=== PATIENT | male | born 1955 | race Caucasian/White ===

== ENCOUNTER 2020-10-03 16:04 | Observation (INO) | payer MEDICARE, SELFPAY ==
[2020-10-03] VITALS (44 sets, daily range): BP systolic 93–113; BP diastolic 53–93; PULSE 79–167; RESP 13–26; TEMP 36.4–37.1; O2SAT 90–100; BMI 33.5
--- NOTE | ~2020-10-03 | XR_ITS ---
EXAMINATION: XR chest 1V portable INDICATION: Dizziness, bradycardia TECHNIQUE: Portable AP chest at 1630 hours COMPARISON: None available FINDINGS: The lungs are free of acute opacities. There is no pleural effusion or pneumothorax. The ca rdiomediastinal silhouette is normal. 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 IMPRESSION: 1. No acute cardiopulmonary abnormality. Reviewed, dictated and finalized at location A.
--- NOTE | 2020-10-03 16:20 | ECG_ITS ---
Measurements Intervals [place] Rate: 84 P: [place]: 0 QRS: 29 QRSD: 135 T: 84 QT: 406 QTc: 482 Interpretive Statements ATRIAL FIBRILLATION LEFT BUNDLE BRANCH BLOCK BASELINE ARTIFACT- II, III ABNORMAL ECG Electronically Signed On 10-03-2020 17:36:06 CDT by Alberto Dominguez D.O.
--- NOTE | 2020-10-03 16:30 | ED.GENADULT ---
HPI - General Adult General Chief complaint: Unspecified Stated complaint: DIZZY,LIGHTHEADED LOW HR Time Seen by Provider: 10/03/20 16:24 Source: RN notes reviewed History of Present Illness HPI narrative: Patient reversed presents to emergency department from home via EMS for dizziness. Patient states he was outside for 3 hours telling some hard ground when he began to feel dizzy and weak he states he noted seeing spots in his eyes that time called EMS states did not drink anything during that time but was trying to drink after he was done when EMS arrived the patient was noted to be significantly bradycardic in the low 30s he was given 0.5 mg of atropine at that time. Patient is not currently in atrial fibrillation he denies a history of atrial fibrillation but states he has been worked up for an irregular heart rate before in the past states he has been having episodes over the past month where he feels like his heart is racing at time he denies any fevers or chills, chest pain shortness of breath abdominal pain states he was having nausea and vomiting prior to EMS arrival Related Data Home Medications Medication Instructions Recorded Confirmed glipizide 10 mg PO DAILY 10/03/20 10/03/20 lisinopril 10 mg PO DAILY 10/03/20 10/03/20 metformin 500 mg PO DAILY 10/03/20 10/03/20 pitavastatin calcium [Livalo] 1 mg PO DAILY 10/03/20 10/03/20 Allergies Allergy/AdvReac Type Severity Reaction Status Date / Time No Known Allergies Allergy Verified 10/03/20 16:13 Review of Systems Review of Systems: Gen.: Denies fevers or chills Eyes: Denies eye pain or visual change ENT: Denies congestion Respiratory: Denies shortness of breath or cough CV: See HPI GI: Denies abdominal pain or diarrhea. Reports nausea vomiting denies burning, urgency, frequency or hematuria Musculoskeletal: Denies back pain or muscle pain Neuro: Reports weakness Skin: Denies rash Except as documented, all other systems reviewed and negative [facility] Past Medical History Medical History (Updated 10/03/20 @ 22:08 by Lucas Plata DO) Diabetes mellitus Hypertension Family History Family History (Updated 10/03/20 @ 21:37 by Emma Parnell RN) Mother Alzheimer disease Seizure Father Skin cancer Diabetes mellitus Hx of CABG Social History Social History (Updated 10/03/20 @ 16:32 by Lucas Plata DO) Smoking status: Never smoker Alcohol intake: current Substance use: never Substance use type: does not use Gender identity (if verbalized by the patient): Male Spiritual care concerns: No Exam Narrative: APPEARANCE: No acute distress, nontoxic, resting in bed EYES: EOMI HEENT: Normocephalic, atraumatic, OMM RESPIRATORY: No respiratory distress Clear to auscultation bilaterally with no rhonchi wheezing or rales. CARDIOVASCULAR: Irregular irregular and tachycardic without murmurs rubs or gallops. ABDOMINAL: Soft, nontender, nondistended, no rebound or guarding MUSCULOSKELETAl: Moves all extremities. No clubbing, cyanosis or edema. NEURO: Awake and alert. Following commands, speech normal, no focal deficits SKIN:: Warm, dry. No rashes lesions or abrasions PSYCHIATRIC: Normal affect/mood, Course Course Emergency Course: Reviewed rhythm strips from EMS patient with sinus bradycardia in the low 30s prior to atropine 1645 called and discussed with Dr. Dominguez per cardiology. Discussed the patient's bradycardia and atropine given and now A. fib with RVR. Recommends patient being loaded with amiodarone for his atrial fibrillation with RVR. Recommends no anticoagulation at this time Called and updated Dr. Dominguez on lab results patient's current heart rate. Agrees with current treatment plan of amiodarone will follow as inpatient Discussed Dr. Avendaño presentation work-up agrees with admission at this time Discussed with patient and family results of workup and diagnosis. Discussed need for admission. Patient and family underst
--- NOTE | 2020-10-03 16:35 | ECG_ITS ---
Measurements Intervals [place] Rate: 157 P: [place]: 0 QRS: 15 QRSD: 130 T: 154 QT: 296 QTc: 480 Interpretive Statements ATRIAL FIBRILLATION WITH RAPID VENTRICULAR RESPONSE LEFT BUNDLE BRANCH BLOCK BASELINE ARTIFACT- II, III, AVF, V4-V6 ABNORMAL ECG Electronically Signed On 10-03-2020 17:37:28 CDT by Alberto Dominguez D.O.
--- NOTE | 2020-10-03 16:56 | PC.NURSE ---
Called Demario in lab to add on CMP CK, PT INR PTT, CBCD, BNP
[2020-10-03] MEDS: AMIODARONE 150 MG/D5W 100 ML 150 MG/100 ML BAG 600 MG IV CONT (17:16)
[2020-10-03] MEDS: SODIUM CHLORIDE 0.9% IV 1,000 ML 33.33 ML (17:16)
[2020-10-03] MEDS: SODIUM CHLORIDE 0.9% IV 1,000 ML 999 ML IV CONT ×2 (17:17→18:09)
[2020-10-03] MEDS: AMIODARONE 360 MG/D5W 200 ML 360 MG/200 ML BAG 33.33 MG IV CONT (17:39)
[2020-10-03 18:08] LABS: Basophils Percent Auto 0.2 % (0.2-1.2); Eosinophils Percent Auto 0.1 % (0-4.4); Hematocrit 43.5 % (42.0-52.0); Hemoglobin 13.9 g/dL (14.0-18.0); Immature Granulocyte Absolute 0.05 K/mm3 (0.00-0.031); Immature Granulocyte Percent A 0.4 % (0-0.5); Lymphocytes Percent Auto 7.4 % (18.3-44.2); Mean Corpuscular Hemoglobin 29.2 pg (26-34); Mean Corpuscular Volume 91.4 fl (80-100); Mean Platelet Volume 11.1 fl (7.4-10.4); Monocytes Percent Auto 7.2 % (2.6-8.5); Neutrophils Absolute Auto 11.4 K/mm3 (1.3-6.7); Neutrophils Percent Auto 84.7 % (45.5-73.1); Platelet Count Result 203 k/mm3 (150-375); Red Blood Count 4.76 M/mm3 (4.6-6.20); Red Cell Distribution Width 13.6 % (11.5-14.5); White Blood Count 13.5 K/mm3 (4.5-10.0)
[2020-10-03 18:18] LABS: INR 1.1; Prothrombin Time 13.7 Seconds (11.1-14.7)
[2020-10-03 18:19] LABS: Partial Thromboplastin Time 23.9 SECONDS (22.3-36.8)
[2020-10-03 18:33] LABS: Alanine Aminotransferase 38 U/L (4-50); Albumin Level 4.1 g/dL (3.5-5.1); Alkaline Phosphatase 57 U/L (38-126); Anion Gap 13 mmol/L (8-16); Aspartate Amino Transferase 36 U/L (17-59); Bilirubin,Total 1.5 mg/dL (0.2-1.3); Blood Urea Nitrogen 21 mg/dL (9-20); Calcium 9.3 mg/dL (8.4-10.2); Carbon Dioxide 23 mmol/L (22-30); Chloride 105 mmol/L (98-107); Creatine Kinase 127 U/L (55-170); Estimated CRCL calculation 50 ml/min; Estimated Glomerular Filt Rate 41; Glucose 221 mg/dL (65-110); Magnesium 1.8 mg/dL (1.6-2.3); Potassium 4.6 mmol/L (3.4-5.0); Sodium 141 mmol/L (137-145)
[2020-10-03 18:47] LABS: Troponin I 0.091 ng/mL (0.000-0.034)
--- NOTE | 2020-10-03 19:29 | PM.CNCAR ---
Assessment and Plan Assessment and plan (1) Hypertension: Code(s): I10 - Essential (primary) hypertension Status: Acute Assessment and Plan: Low normal currently and improving with IV fluid rehydration. Hold off on Lisinopril. (2) Dyslipidemia: Code(s): E78.5 - Hyperlipidemia, unspecified Status: Acute Assessment and Plan: On Livalo. (3) Atrial fibrillation: Code(s): I48.91 - Unspecified atrial fibrillation Status: Acute Assessment and Plan: Probably pushed him over with Atropine. [id number] 3. Will given him Lovenox dose while he is in hospital. Started Amiodarone drip to attempt chemical cardioversion. Will add low dose Metoprolol to improve his HR as his BP allows. Obtain echo. Check TSH. (4) Junctional rhythm: Code(s): I49.8 - Other specified cardiac arrhythmias Status: Acute (5) Diabetes mellitus: Code(s): E11.9 - Type 2 diabetes mellitus without complications Status: Acute Assessment and Plan: Management as per hospitalist. (6) LBBB (left bundle branch block): Code(s): I44.7 - Left bundle-branch block, unspecified Status: Acute History of Present Illness History of Present Illness Consult date/time: 10/03/20 19:30 Reason for consult: Atrial fibrillation. 64 yr old man presents to ED via EMS for dizziness. He has a history of DM, hypertension, dyslipidemia. Reports that he worked around his house in the heat for 3 hours and was not drinking enough water. He went to lie down and it did not get better, feeling weak, dizzy, nauseated and vomited. He called EMS and they found him to be in junctional rhythm at HR 30's bpm and low BP. He was given Atropine 0.5 mg IV x1, which then caused him to go into atrial fibrillation with RVR. He received IV fluids. Amiodarone drip has been started and his HR is in 110-130 bpm range. Denies any more dizzness, BP is low normal at 102/68 mmHg. No longer feeling dizziness, nauseated. Normally he is able to walk 2 miles without any problems. Admits to some palpitations off and on. Denies snoring, waking up or daytime sleepiness. Denies chest pain, sob, orthopnea, PND, edema. Troponin .091. EKG Atrial fibrillation with RVR, LBBB. CXR is normal. Cr 1.7/GFR 50. Mag 1.8. Reason For Visit: DIZZY,LIGHTHEADED LOW HR Review of Systems Constitutional: Constitutional: Reports as per HPI, Denies chills, Denies daytime sleepiness, Reports fatigue, Denies fever(s) and Denies snoring Cardiovascular: Cardiovascular: Reports as per HPI, Denies chest pain, Reports irregular heart rhythm, Reports lightheadedness and Denies dyspnea on exertion Respiratory: Respiratory: Reports as per HPI and Denies dyspnea Gastrointestinal: Gastrointestinal: Reports as per HPI, Denies abdominal pain, Reports nausea and Reports vomiting Genitourinary: Genitourinary: Reports as per HPI and Denies dysuria Musculoskeletal: Musculoskeletal: Reports as per HPI Neurologic: Reports as per HPI, Reports dizziness and Denies syncope [facility] Past Medical History Medical History (Updated 10/03/20 @ 19:40 by Alberto Dominguez DO) Diabetes mellitus Hypertension Social History Social History (Updated 10/03/20 @ 16:32 by Lucas Plata DO) Smoking status: Never smoker Meds Home Medications and Allergies Home Medications Medication Instructions Recorded Confirmed Type glipizide 10 mg PO DAILY 10/03/20 10/03/20 History lisinopril 10 mg PO DAILY 10/03/20 10/03/20 History metformin 500 mg PO DAILY 10/03/20 10/03/20 History pitavastatin calcium [Livalo] 1 mg PO DAILY 10/03/20 History Allergies Allergy/AdvReac Type Severity Reaction Status Date / Time No Known Allergies Allergy Verified 10/03/20 16:13 Vital Signs Vital Signs - 24 hr 10/03/20 16:06 10/03/20 16:09 10/03/20 16:15 Temperature 97.5 F L Pulse Rate 91 79 96 Respiratory Rate 18 14 19 Blood Pressure 96/59 L Pulse Oximetry 98 100
--- NOTE | 2020-10-03 21:27 | ADMGEN ---
This patient, Judson Bazan, was admitted to IMU Room 202-01 at 2125. Patient/family oriented to hospital policies and general routines including ID bracelet, bed and alarms, visiting hours, pain management, procedures, bathroom and other care routines, personal items, smoking policy, room service/diet, and visiting hours. Information on how to activate the Rapid Response Team has been discussed. Patient/Family are encouraged to report perceived risks to care and to ask questions if they do not understand what they are told or what they should do.
[2020-10-03 21:42] LABS: Troponin I 0.117 ng/mL (0.000-0.034)
[2020-10-03 22:43] LABS: Troponin I 0.121 ng/mL (0.000-0.034)
[2020-10-03] MEDS: AMIODARONE 360 MG/D5W 200 ML 360 MG/200 ML BAG 16.67 MG IV CONT (23:06)
[2020-10-03] MEDS: ENOXAPARIN 120 MG/0.8 ML SYRINGE 110 MG SUB-Q (23:27)
[2020-10-03] MEDS: METOPROLOL TARTRATE 12.5 MG TABLET PO (23:28)
[2020-10-03] MEDS: SODIUM CHLORIDE 0.9% IV 1,000 ML 100 ML IV CONT (23:31)
[2020-10-04] VITALS (17 sets, daily range): BP systolic 81–98; BP diastolic 51–76; PULSE 59–156; RESP 12–18; TEMP 36.6–37; O2SAT 92–100
--- NOTE | 2020-10-04 | ECHO_ITS ---
Patient Info Name: Judson Bazan Age: 64 years : 1955 Gender: Male Ht: 72 in Wt: 247 lbs BSA: 2.42 m2 BP: 86 / 68 mmHg Technical Quality: Poor Exam Date: 10/04/2020 8:43 AM Exam Location: [facility] Patient Status: Inpatient Admit Date: 10/03/2020 Staff Ordering Physician: Alberto Dominguez DO Excavating Machine Operator: Yamileth Mir RDCS Attending Provider: Jose D Duncan MD Referring Physician: Alberto GAY; Exam Type: CA echo dop color flow w con Study Info Indications I48.0 - Paroxysmal atrial fibrillation Complete two-dimentional, color flow and Doppler transthoracic echocardiogram is performed with agitated saline and with contrast to opacify the left ventricle and to improve the delineation of the left ventricle endocardial borders. Contrast/Agitated Saline Contrast/Ag. Saline: Definity Amount: 1.00 ml Administered By: Tamanna Koehler RN Existing IV Access: Yes IV Access Condition: patent with no signs of infiltration Reason for Poor Study: patient body habitus Summary 1. Left ventricular chamber dimension is normal. 2. Definity contrast administered did not improve wall motion interpretation. 3. Left ventricular systolic function is normal, estimated at 55-60%. 4. There is mildly increased left ventricular wall thickness. 5. Left ventricular septal wall motion is abnormal with septal motion related to bundle branch block. 6. The left ventricular diastolic function is normal. 7. E/e' 7 is not elevated. 8. Atrial fibrillation. 9. Right ventricular systolic function is reduced based on a mildly abnormal TAPSE 1.6 cm. 10. Left atrial chamber dimension is mildly enlarged. 11. There is trace tricuspid valve regurgitation. 12. No pulmonary hypertension, estimated pulmonary arterial systolic pressure is 27 mmHg. Left Ventricle Definity contrast administered did not improve wall motion interpretation. Atrial fibrillation. E/e' 7 is not elevated. Left ventricular chamber dimension is normal. Left ventricular systolic function is normal, estimated at 55-60%. There is mildly increased left ventricular wall thickness. Left ventricular septal wall motion is abnormal with septal motion related to bundle branch block. The left ventricular diastolic function is normal. Right Ventricle Right ventricular systolic function is reduced based on a mildly abnormal TAPSE 1.6 cm. Right ventricular chamber dimension is not well visualized. Left Atria Left atrial chamber dimension is mildly enlarged. Right Atria Right atrial chamber dimension is normal. Aortic Valve The aortic valve is trileaflet. There is no aortic valve stenosis. There is no aortic valve regurgitation. Pulmonic Valve There is no pulmonic regurgitation. Mitral Valve There is no mitral valve stenosis. There is no mitral valve regurgitation. Tricuspid Valve There is trace tricuspid valve regurgitation. No pulmonary hypertension, estimated pulmonary arterial systolic pressure is 27 mmHg. Pericardium/Pleural There is no pericardial effusion. Inferior Vena Cava Normal inferior vena cava with >50% collapse upon inspiration consistent with normal right atrial pressure, 5 mmHg. Aorta The aortic root size at the sinus of Valsalva is normal. Left Ventricular Outflow Tract Name Value Normal
[2020-10-04 00:26] LABS: Glucose Point of Care 203 mg/dl (65-105)
--- NOTE | 2020-10-04 01:42 | PM.IMHP ---
H&P: HPI History of Present Illness Date/Time: 10/04/20 01:42 Chief Complaint: DIZZINESS Narrative: THIS IS A 64-YEAR-OLD MALE WITH PAST MEDICAL HISTORY SIGNIFICANT HYPERTENSION, TYPE 2 DIABETES MELLITUS ON ORAL AGENTS AND DIET CONTROLLED, DYSLIPIDEMIA. PATIENT PRESENTED TODAY TO THE EMERGENCY ROOM AFTER HE WAS DOING YD WORK WHEN HE FELT VERY DIZZY WHEN BACK INSIDE HIS HOUSE HE WENT OF 3 FLIGHTS OF STAIRS AND ON HIS WAY DOWN HE FELT VERY LIGHTHEADED DIZZY HE DENIED ANY CHEST PAIN HE HAD PROFUSE DIAPHORESIS. PATIENT STATES THAT HE HAD 1 OTHER EPISODES SIMILAR TO THAT ABOUT COUPLE OF MONTHS AGO. PATIENT DENIED ANY CHANGE OF VISION NO SHORTNESS OF BREATH NO NAUSEA NO VOMITING NO ABDOMINAL PAIN NO LEG SWELLING NO PND NO ORTHOPNEA NO FEVERS NO RIGORS NO CHILLS NO COUGH. HE HAS BEEN HIS USUAL STATE OF HEALTH UP UNTIL THESE. PATIENT CALLED EMS AND UPON EMS ARRIVAL HE WAS FOUND TO HAVE A HEART RATE INTO THE 30S HOWEVER UPON ARRIVAL TO EMERGENCY ROOM HIS HEART RATE WAS IN THE 160'S AND HE WAS FOUND TO HAVE AFIB WITH RAPID VENTRICULAR RESPONSE. PRELIMINARY WORKUP WAS SIGNIFICANT FOR A SLIGHT ELEVATION OF TROPONIN AND CREATININE. A CHEST X-RAY DID NOT SHOW ANY ACUTE CARDIOPULMONARY ABNORMALITY. PATIENT WAS STARTED ON CARDIZEM DRIP IN THE EMERGENCY ROOM. Review of Systems Review of Systems: DIZZINESS Constitutional: Constitutional: Denies chills, Denies daytime sleepiness, Denies difficulty sleeping, Denies fatigue, Denies fever(s), Denies lethargy, Denies night sweats and Denies weakness Eyes: Eyes: Denies change in vision ENT: Denies dysphagia, Reports dizziness, Denies odynophagia and Denies disequilibrium Cardiovascular: Cardiovascular: Denies chest pain, Denies chest pain at rest, Reports diaphoresis, Denies syncope, Denies leg edema, Reports lightheadedness, Denies radiating jaw, neck or arm pain, Denies palpitations, Denies dyspnea, Denies dyspnea on exertion and Denies orthopnea Respiratory: Respiratory: Denies cough and Denies wheezing Gastrointestinal: Gastrointestinal: Denies dyspepsia, Denies heartburn, Denies nausea and Denies vomiting Genitourinary: Genitourinary: Reports no additional male genitourinary complaints Musculoskeletal: Musculoskeletal: Reports no additional musculoskeletal complaints Integumentary/Breasts: Skin/Breast: Reports system reviewed and no additional complaints, except as docu Neurologic: Reports system reviewed and no additional complaints, except as documented, Denies focal weakness and Denies Sensory deficit (Neuro) Psychiatric: Psychiatric: Reports no additional psychiatric complaints PMFSH Past Medical History Medical History (Updated 10/03/20 @ 22:08 by Lucas Plata DO) Diabetes mellitus Hypertension Family History Family History (Updated 10/03/20 @ 21:37 by Emma Parnell RN) Mother Alzheimer disease Seizure Father Skin cancer Diabetes mellitus Hx of CABG Social History Social History (Updated 10/03/20 @ 16:32 by Lucas Plata DO) Smoking status: Never smoker Alcohol intake: current Substance use: never Substance use type: does not use Gender identity (if verbalized by the patient): Male Spiritual care concerns: No Meds Home Medications and Allergies Home Medications Medication Instructions Recorded Confirmed Type glipizide 10 mg PO DAILY 10/03/20 10/03/20 History lisinopril 10 mg PO DAILY 10/03/20 10/03/20 History metformin 500 mg PO DAILY 10/03/20 10/03/20 History pitavastatin calcium [Livalo] 1 mg PO DAILY 10/03/20 10/03/20 History Allergies Allergy/AdvReac Type Severity Reaction Status Date / Time No Known Allergies Allergy Verified 10/03/20 16:13 Vital Signs Vital Signs - 24 hr 10/03/20 16:06 10/03/20 16:09 10/03/20 16:15 Temperature 97.5 F L Pulse Rate 91 79 96 Respiratory Rate 18 14 19 Blood Pressure 96/59 L Pulse Oximetry 98 100 100 10/03/20 16:17 10/03/20 16:30 10/03/20 16:41 Temperature Pu
[2020-10-04 05:21] LABS: Basophils Percent Auto 0.3 % (0.2-1.2); Eosinophils Percent Auto 0.3 % (0-4.4); Hematocrit 37.3 % (42.0-52.0); Hemoglobin 12.2 g/dL (14.0-18.0); Immature Granulocyte Absolute 0.04 K/mm3 (0.00-0.031); Immature Granulocyte Percent A 0.3 % (0-0.5); Lymphocytes Absolute Auto 2.31 K/mm3 (0.9-3.2); Lymphocytes Percent Auto 19.7 % (18.3-44.2); Mean Corpuscular HGB Conc 32.7 g/dl (32-36); Mean Corpuscular Hemoglobin 29.2 pg (26-34); Mean Corpuscular Volume 89.2 fl (80-100); Mean Platelet Volume 11.7 fl (7.4-10.4); Monocytes Absolute Auto 1.2 K/mm3 (0.1-0.6); Monocytes Percent Auto 9.8 % (2.6-8.5); Neutrophils Absolute Auto 8.2 K/mm3 (1.3-6.7); Neutrophils Percent Auto 69.6 % (45.5-73.1); Platelet Count Result 209 k/mm3 (150-375); Red Blood Count 4.18 M/mm3 (4.6-6.20); Red Cell Distribution Width 13.8 % (11.5-14.5); White Blood Count 11.7 K/mm3 (4.5-10.0)
[2020-10-04 05:50] LABS: Alanine Aminotransferase 27 U/L (4-50); Albumin Level 3.2 g/dL (3.5-5.1); Alkaline Phosphatase 48 U/L (38-126); Anion Gap 9 mmol/L (8-16); Aspartate Amino Transferase 25 U/L (17-59); Blood Urea Nitrogen 23 mg/dL (9-20); Calcium 8.7 mg/dL (8.4-10.2); Carbon Dioxide 22 mmol/L (22-30); Chloride 107 mmol/L (98-107); Estimated CRCL calculation 83 ml/min; Estimated Glomerular Filt Rate > 60; Glucose 126 mg/dL (65-110); Sodium 138 mmol/L (137-145)
[2020-10-04] MEDS: METOPROLOL TARTRATE 12.5 MG TABLET PO (06:28)
--- NOTE | 2020-10-04 07:30 | PM.PNCARD ---
Progress Note: A&P Assessment and Plan (1) Hypertension: Code(s): I10 - Essential (primary) hypertension Status: Acute Assessment and Plan: Relative hypotension. Probably related to dehydration and in atrial fib. Hold off on Lisinopril. Continue with IV fluids. (2) Dyslipidemia: Code(s): E78.5 - Hyperlipidemia, unspecified Status: Acute Assessment and Plan: On Livalo. (3) Atrial fibrillation: Code(s): I48.91 - Unspecified atrial fibrillation Status: Acute Assessment and Plan: Probably pushed him over with Atropine. [id number] 3. Will given him Lovenox dose while he is in hospital. Started Amiodarone drip to attempt chemical cardioversion. Will add low dose Metoprolol to improve his HR as his BP allows. If BP remains low will add Digoxin 125 mcg PO BID for rate control. Obtain echo this morning. Check TSH. If still in atrial fib after 24 hours of Amiodarone drip, then plan for DC cardioversion in AM with anesthesia. (4) Junctional rhythm: Code(s): I49.8 - Other specified cardiac arrhythmias Status: Acute Assessment and Plan: Probably due to vasovagal from dehydration/heat exhaustion. (5) Diabetes mellitus: Code(s): E11.9 - Type 2 diabetes mellitus without complications Status: Acute Assessment and Plan: Management as per hospitalist. (6) LBBB (left bundle branch block): Code(s): I44.7 - Left bundle-branch block, unspecified Status: Acute Subjective Date/time seen: 10/04/20 07:30 Patient feels fine this morning, walking around in his room going to restroom. No chest pain or sob or dizziness. Exam Const: General: cooperative, healthy appearing and comfortable Nutritional Appearance: obese Resp: Auscultation: clear to auscultation bilaterally, no crackles, no rales, no rhonchi and no wheezes Cardio: Jugular venous distension: no JVD Rate: tachycardic Rhythm: abnormal rhythm Heart sounds: no murmurs Peripheral pulses: dorsalis pedis present GI: GI Palp: No abdominal tenderness and Yes Soft to palpation Neuro: General: oriented to person, oriented to place and oriented to time Extrem: Right lower extremity: no edema Left lower extremity: no edema Objective Data Vital Signs Vital Signs: Vital Signs - 24 hr 10/03/20 16:06 10/03/20 16:09 10/03/20 16:15 Temperature 97.5 F L Pulse Rate 91 79 96 Respiratory Rate 18 14 19 Blood Pressure 96/59 L Pulse Oximetry 98 100 100 10/03/20 16:17 10/03/20 16:30 10/03/20 16:41 Temperature Pulse Rate 89 151 H 163 H Respiratory Rate 16 22 H 16 Blood Pressure 100/56 L 93/63 L Pulse Oximetry 100 99 100 10/03/20 16:45 10/03/20 16:46 10/03/20 17:00 Temperature Pulse Rate 149 H 167 H 159 H Respiratory Rate 19 18 25 H Blood Pressure 97/69 L 109/80 Pulse Oximetry 98 100 100 10/03/20 17:18 10/03/20 17:30 10/03/20 17:31 Temperature Pulse Rate 142 H 137 H 140 H Respiratory Rate 15 16 17 Blood Pressure 107/53 L Pulse Oximetry 100 100 100 10/03/20 17:45 10/03/20 17:47 10/03/20 18:00 Temperature Pulse Rate 142 H 136 H 131 H Respiratory Rate 25 H 20 18 Blood Pressure 105/63 Pulse Oximetry 99 100 99 10/03/20 18:01 10/03/20 18:02 10/03/20 18:15 Temperature Pulse Rate 134 H 151 H 149 H Respiratory Rate 13 14 19 Blood Pressure 109/80 Pulse Oximetry 99 100 95 10/03/20 18:16 10/03/20 18:30 10/03/20 18:31 Temperature Pulse Rate 131 H 131 H 135 H Respiratory Rate 15 24 H 20 Blood Pressure 103/79 106/93 H Pulse Oximetry 90 99 100 10/03/20 18:45 10/03/20 18:46 10/03/20 19:00 Temperature Pulse Rate 133 H 121 H 129 H Respiratory Rate 17 22 H 22 H Blood Pressure 103/79 Pulse Oximetry 97 100 100 10/03/20 19:01 10/03/20 19:15 10/03/20 19:18 Temperature Pulse Rate 135 H 133 H 131 H Respiratory Rate 22 H 14 17 Blood Pressure 107/74 102/68 Pulse Oximetry 98 100 100 10/03/20 19:30
--- NOTE | 2020-10-04 08:00 | ECG_ITS ---
Measurements Intervals [place] Rate: 122 P: [place]: 0 QRS: 38 QRSD: 137 T: 180 QT: 328 QTc: 468 Interpretive Statements ATRIAL FIBRILLATION WITH RAPID VENTRICULAR RESPONSE LEFT BUNDLE BRANCH BLOCK ABNORMAL ECG Electronically Signed On 10-04-2020 9:39:43 CDT by Alberto Dominguez D.O.
[2020-10-04 08:03] LABS: Glucose Point of Care 203 mg/dl (65-105)
[2020-10-04] MEDS: PERFLUTREN LIPID MICROSPHERES 1.5 ML VIAL DILUTED TO 10 ML TOTAL VOLUME IV PUSH (09:13)
[2020-10-04] MEDS: ENOXAPARIN 120 MG/0.8 ML SYRINGE 110 MG SUB-Q ×2 (09:39→20:23)
[2020-10-04] MEDS: SODIUM CHLORIDE 0.9% IV 1,000 ML 100 ML IV CONT ×2 (09:43→19:51)
[2020-10-04 10:55] LABS: Add Urine Microscopic? NO; Appearance Urine Clear (Clear); Bilirubin Urine Negative (Negative); Blood Urine Negative (Negative); Color Urine Yellow (Yellow); Glucose Urine UA Negative (Negative); Ketones Urine Negative (Negative); Leukocyte Esterase Ur Negative LEU/UL (Negative); Nitrate Urine Negative (Negative); Protein Urine Negative (Negative); Specific Grav Ur 1.027 (1.001-1.035); Urobilinogen Urine Negative mg/dL (<2.0)
[2020-10-04] MEDS: AMIODARONE 360 MG/D5W 200 ML 360 MG/200 ML BAG 16.67 MG IV CONT (11:30)
[2020-10-04 11:46] LABS: Glucose Point of Care 176 mg/dl (65-105)
--- NOTE | 2020-10-04 12:16 | PHAR ---
Home med verified: Livalo 1mg take 1 tablet PO daily
[2020-10-04] MEDS: DIGOXIN TAB 125 MCG TABLET PO (14:40)
[2020-10-04 16:26] LABS: Glucose Point of Care 194 mg/dl (65-105)
--- NOTE | 2020-10-04 16:58 | PM.IMPN ---
Progress Note: A&P Assessment and Plan (1) Atrial fibrillation with rapid ventricular response: Code(s): I48.91 - Unspecified atrial fibrillation Status: Acute Assessment and Plan: Cardiology consult to recommendations appreciated Patient based on amiodarone drip for conversion Anticoagulation (2) Acute renal insufficiency: Code(s): N28.9 - Disorder of kidney and ureter, unspecified Status: Acute Assessment and Plan: HU secondary to dehydration IVFs (3) Elevated troponin: Code(s): R77.8 - Other specified abnormalities of plasma proteins Status: Acute Assessment and Plan: secondary to demand ischemia (4) Acute dehydration: Code(s): E86.0 - Dehydration Status: Acute Assessment and Plan: volume status improving (5) LBBB (left bundle branch block): Code(s): I44.7 - Left bundle-branch block, unspecified Status: Acute Assessment and Plan: cardio following (6) Junctional rhythm: Code(s): I49.8 - Other specified cardiac arrhythmias Status: Acute Assessment and Plan: cardiology following (7) Diabetes mellitus: Code(s): E11.9 - Type 2 diabetes mellitus without complications Status: Acute (8) Hypertension: Code(s): I10 - Essential (primary) hypertension Status: Acute Assessment and Plan: Accu-Cheks Insulin sliding scale Titrate as needed (9) Dyslipidemia: Code(s): E78.5 - Hyperlipidemia, unspecified Status: Acute Assessment and Plan: cont statin Additional Plan cont current care possible dc tomorrow Subjective Date/time seen: 10/04/20 08:58 pt seen at bedside POC reviewed w them Exam Narrative: GEN: NAD, cooperative, sitting up in chair w spouse at his side HEENT: NCAT, MMM, EOMI Neck: no JVD Heart: IRR HR 130-140s Lungs: no use of accessory muscles, symmetric chest rise Ext: no clubbing, no edema Neuro: no focal motor deficits, AAOx3 , cafe aide intact Psych: mood and affect congruent Objective Data Vital Signs Vital Signs: Vital Signs - 24 hr 10/03/20 16:06 10/03/20 16:09 10/03/20 16:15 Temperature 97.5 F L Pulse Rate 91 79 96 Respiratory Rate 18 14 19 Blood Pressure 96/59 L Pulse Oximetry 98 100 100 10/03/20 16:17 10/03/20 16:30 10/03/20 16:41 Temperature Pulse Rate 89 151 H 163 H Respiratory Rate 16 22 H 16 Blood Pressure 100/56 L 93/63 L Pulse Oximetry 100 99 100 10/03/20 16:45 10/03/20 16:46 10/03/20 17:00 Temperature Pulse Rate 149 H 167 H 159 H Respiratory Rate 19 18 25 H Blood Pressure 97/69 L 109/80 Pulse Oximetry 98 100 100 10/03/20 17:18 10/03/20 17:30 10/03/20 17:31 Temperature Pulse Rate 142 H 137 H 140 H Respiratory Rate 15 16 17 Blood Pressure 107/53 L Pulse Oximetry 100 100 100 10/03/20 17:45 10/03/20 17:47 10/03/20 18:00 Temperature Pulse Rate 142 H 136 H 131 H Respiratory Rate 25 H 20 18 Blood Pressure 105/63 Pulse Oximetry 99 100 99 10/03/20 18:01 10/03/20 18:02 10/03/20 18:15 Temperature Pulse Rate 134 H 151 H 149 H Respiratory Rate 13 14 19 Blood Pressure 109/80 Pulse Oximetry 99 100 95 10/03/20 18:16 10/03/20 18:30 10/03/20 18:31 Temperature Pulse Rate 131 H 131 H 135 H Respiratory Rate 15 24 H 20 Blood Pressure 103/79 106/93 H Pulse Oximetry 90 99 100 10/03/20 18:45 10/03/20 18:46 10/03/20 19:00 Temperature Pulse Rate 133 H 121 H 129 H Respiratory Rate 17 22 H 22 H Blood Pressure 103/79 Pulse Oximetry 97 100 100 10/03/20 19:01 10/03/20 19:15 10/03/20 19:18 Temperature Pulse Rate 135 H 133 H 131 H Respiratory Rate 22 H 14 17 Blood Pressure 107/74 102/68 Pulse Oximetry 98 100 100 10/03/20 19:30 10/03/20 19:31 10/03/20 19:45 Temperature Pulse Rate 124 H 129 H 127 H Respiratory Rate 17 16 17 Blood Pressure 103/66 Pulse Oximetry 99 99 99 10/03/20 19:46 10/03/20 20:00
[2020-10-04 20:11] LABS: Glucose Point of Care 192 mg/dl (65-105)
[2020-10-05] VITALS: BP 108/70; PULSE 49; PULSE 58; RESP 16; TEMP 36.4; O2SAT 100
[2020-10-05 02:00] VITALS: PULSE 57
[2020-10-05 04:00] VITALS: BP 125/67; PULSE 65; RESP 14; TEMP 36.4; O2SAT 100
[2020-10-05] MEDS: SODIUM CHLORIDE 0.9% IV 1,000 ML 100 ML IV CONT (05:24)
[2020-10-05 06:24] LABS: Troponin I 0.037 ng/mL (0.000-0.034)
--- NOTE | 2020-10-05 07:23 | PM.PNCARD ---
Progress Note: A&P Assessment and Plan (1) Hypertension: Code(s): I10 - Essential (primary) hypertension Status: Acute Assessment and Plan: Normal BP today, no longer hypotensive. Probably related to dehydration and in atrial fib. Hold off on Lisinopril. (2) Dyslipidemia: Code(s): E78.5 - Hyperlipidemia, unspecified Status: Acute Assessment and Plan: On Livalo. (3) Atrial fibrillation: Code(s): I48.91 - Unspecified atrial fibrillation Status: Acute Assessment and Plan: Probably pushed him over with Atropine. [id number] 3. Will given him Lovenox dose while he is in hospital. TSH is normal. Cardioverted with Amiodarone drip, back in sinus rhythm. Will not need anticoagulation unless he has a recurrence of atrial fibrillation. May d/c home from cardiology standpoint and f/u with me in 1 week. (4) Junctional rhythm: Code(s): I49.8 - Other specified cardiac arrhythmias Status: Acute Assessment and Plan: Probably due to vasovagal from dehydration/heat exhaustion. (5) Diabetes mellitus: Code(s): E11.9 - Type 2 diabetes mellitus without complications Status: Acute Assessment and Plan: Management as per hospitalist. (6) LBBB (left bundle branch block): Code(s): I44.7 - Left bundle-branch block, unspecified Status: Acute (7) Elevated troponin: Code(s): R77.8 - Other specified abnormalities of plasma proteins Status: Acute Assessment and Plan: Probably related to demand ischemia from junctional rhythm then atrial fib with RVR. No clinical symptoms to suggest ACS. Troponin peaked at 0.12. Echo shows EF 55-60%, mild LVH, mild RV dysfunction based on TAPSE 1.6 cm, mild LAE, trace TR. Subjective Date/time seen: 10/05/20 07:23 Patient cardioverted with Amiodarone drip at around 5 pm yesterday and he felt better right away. Denies chest pain or sob. Exam Const: General: cooperative, healthy appearing and comfortable Nutritional Appearance: obese Resp: Auscultation: clear to auscultation bilaterally, no crackles, no rales, no rhonchi and no wheezes Cardio: Jugular venous distension: no JVD Rate: regular rate Rhythm: regular rhythm Heart sounds: no murmurs Peripheral pulses: dorsalis pedis present GI: GI Palp: No abdominal tenderness and Yes Soft to palpation Neuro: General: oriented to person, oriented to place and oriented to time Extrem: Right lower extremity: no edema Left lower extremity: no edema Objective Data Vital Signs Vital Signs: Vital Signs - 24 hr 10/04/20 08:00 10/04/20 09:25 10/04/20 11:30 Temperature 98.2 F Pulse Rate 137 H 156 H Respiratory Rate 12 Blood Pressure 86/59 L Pulse Oximetry 100 92 10/04/20 11:35 10/04/20 11:55 10/04/20 12:00 Temperature 98.4 F Pulse Rate 136 H 155 H 141 H Respiratory Rate 12 Blood Pressure 94/58 L Pulse Oximetry 100 10/04/20 14:40 10/04/20 16:00 10/04/20 17:43 Temperature 97.9 F Pulse Rate 134 H 137 H 138 H Respiratory Rate 12 Blood Pressure 81/58 L Pulse Oximetry 100 10/04/20 19:58 10/04/20 22:00 10/04/20 23:38 Temperature 98 F Pulse Rate 61 59 L 60 Respiratory Rate 12 Blood Pressure 89/76 L Pulse Oximetry 100 10/05/20 00:00 10/05/20 02:00 10/05/20 04:00 Temperature 97.5 F L 97.5 F L Pulse Rate 58 L 57 L 65 Respiratory Rate 16 14 Blood Pressure 108/70 125/67 Pulse Oximetry 100 100 Intake/Output Intake/Output: Intake & Output 10/02/20 10/03/20 10/04/20 10/05/20 23:59 23:59 23:59 23:59 Intake Total 3300 5410 1200 Output Total 700 325 Balance 3300 4710 875 Meds/Results Medications: Active Medications Generic Name Dose Route Start Last Admin Trade Name Freq PRN Reason Stop Dose Admin Dextrose 12.5 gm 10/04/20 09:17 Dextrose 50% 25 Gm/50 Ml Syringe IV PUSH PRN PRN Hypoglycemia Protocol Digoxin 125 mcg 10/04/20 12:40
[2020-10-05 08:00] VITALS: BP 124/64; PULSE 64; PULSE 67; RESP 12; TEMP 36.7; O2SAT 100
[2020-10-05 08:10] LABS: Glucose Point of Care 123 mg/dl (65-105)
--- NOTE | 2020-10-05 08:10 | PM.DS ---
DS: Admitting Diagnosis Admitting Diagnosis (1) Atrial fibrillation with rapid ventricular response: Code(s): I48.91 - Unspecified atrial fibrillation Status: Acute Assessment and Plan: ADMIT TO IMU CONTINUES TELEMETRY CARDIZEM DRIP ECHOCARDIOGRAM IN A.M. CONTINUE TO MONITOR CARDIOLOGY CONSULT (2) Acute renal insufficiency: Code(s): N28.9 - Disorder of kidney and ureter, unspecified Status: Acute Assessment and Plan: HOLDING LISINOPRIL HOLDING METFORMIN HOLDING GLIPIZIDE CONTINUE TO MONITOR RENAL ULTRASOUND (3) Elevated troponin: Code(s): R77.8 - Other specified abnormalities of plasma proteins Status: Acute Assessment and Plan: EKG SHOWS ATRIAL FIBRILLATION A LEFT BUNDLE BRANCH BLOCK HOWEVER NO PRIOR EKG FOR COMPARISON NO CHEST PAIN WILL CONTINUE TO TREND LIKELY TO BE NONISCHEMIC MYOCARDIAL INJURY (4) Dyslipidemia: Code(s): E78.5 - Hyperlipidemia, unspecified Status: Acute Assessment and Plan: CONTINUE LIVALO (5) Diabetes mellitus: Code(s): E11.9 - Type 2 diabetes mellitus without complications Status: Acute Assessment and Plan: HOLDING GLIPIZIDE AND METFORMIN INSULIN SLIDING SCALE NEEDED (6) Hypertension: Code(s): I10 - Essential (primary) hypertension Status: Acute Assessment and Plan: HOLDING LISINOPRIL HYDRALAZINE P.R.N. FOR SYSTOLIC OF 150 OR ABOVE DS: Discharge Diagnosis Discharge Diagnosis (1) Atrial fibrillation with rapid ventricular response: Code(s): I48.91 - Unspecified atrial fibrillation Status: Acute (2) Acute renal insufficiency: Code(s): N28.9 - Disorder of kidney and ureter, unspecified Status: Acute (3) Elevated troponin: Code(s): R77.8 - Other specified abnormalities of plasma proteins Status: Acute (4) LBBB (left bundle branch block): Code(s): I44.7 - Left bundle-branch block, unspecified Status: Acute (5) Acute dehydration: Code(s): E86.0 - Dehydration Status: Acute (6) Junctional rhythm: Code(s): I49.8 - Other specified cardiac arrhythmias Status: Acute (7) Dyslipidemia: Code(s): E78.5 - Hyperlipidemia, unspecified Status: Acute (8) Diabetes mellitus: Code(s): E11.9 - Type 2 diabetes mellitus without complications Status: Acute (9) Hypertension: Code(s): I10 - Essential (primary) hypertension Status: Acute (10) Hypotension due to hypovolemia: Code(s): I95.89 - Other hypotension; E86.1 - Hypovolemia Status: Acute DS: Summary Hospital Course Reason for hospitalization: dehydration Hospital Course: 64-year-old male brought to the hospital after working outside in extreme heat conditions. He was found to be hypotensive and bradycardic. Patient received atropine and IV fluids. He subsequently entered into AFib RVR. Patient was admitted cardiology consult and patient was placed on Cardizem drip. overnight patient converted into normal sinus rhythm. He was seen by cardiology and cleared for discharge home in stable condition with indications to follow up in their office within 2 weeks. Recommendation was given for patient to stop all antiarrhythmic and anticoagulation medications and to discharge home on his diabetic regimen. Additionally, patient is advised to follow-up with his PCP within the week. Status at Discharge Functional status at discharge: independent ambulation Overall status at discharge: patient is back to baseline Time Spent with Patient Time attestation: Total time spent providing and/or coordinating discharge services: <30min Exam Narrative: GEN: NAD, cooperative sitting up in chair HEENT: NCAT, MMM, EOMI Neck: no JVD Heart: S1S2 RRR Lungs: CTA B/l Ext: moves all, no cyanosis, no clubbing, no edema Neuro: transitions manager intact, no focal motor deficits AAOx3 Psych: mood and affect congruent DS: Data D
== END 2020-10-05 09:42 | disposition home or self-care (01) ==
LOC: ANHED 17:26 → ANHIMU 22:08
PROVIDERS: Internal Medicine Cardiovascular Disease; Admitting Provider Internal Medicine; Emergency Provider Emergency Medicine; Visit Provider Hospitalist
DX: I48.91 Unspecified atrial fibrillation (principal); I44.7 Left bundle-branch block, unspecified; I49.8 Other specified cardiac arrhythmias; E86.0 Dehydration; N28.9 Disorder of kidney and ureter, unspecified; E11.9 Type 2 diabetes mellitus without complications; I10 Essential (primary) hypertension; R77.8 Other specified abnormalities of plasma proteins; E78.5 Hyperlipidemia, unspecified
CPT/HCPCS: 36415; 71045; 80053; 81003; 82550; 82948; 83735; 84443; 84484; 85025; 85610; 85730; 93005; 96361; 96365; 96366; 96372; 96375; 99285; A9270; C8929; G0378; J0282; J1650; J7030; Q9957

== ENCOUNTER 2021-02-11 02:07 | Day surgery (SDC) | payer MEDICARE, SELFPAY ==
[2021-02-08 13:42] VITALS: BMI 34.4
[2021-02-11] VITALS (9 sets, daily range): BP systolic 123–152; BP diastolic 66–84; PULSE 34–66; RESP 15–21; TEMP 36.4–36.8; O2SAT 96–99; BMI 34.4
--- NOTE | ~2021-02-11 | XR_ITS ---
EXAMINATION: XR chest 1V portable INDICATION: Pacemaker insertion TECHNIQUE: Portable AP chest at 1345 hours COMPARISON: 10/03/2020 FINDINGS: A dual-lead pacemaker of the left chest wall has been inserted with its leads in expected p ositions. No pneumothorax is identified. The lungs are free of acute opacities. The cardiomediastinal silhouette is normal. There is no pleural effusion. IMPRESSION: 1. Left-sided dual-lead pacemaker insertion. No acute cardiopulmonary abnormality. Reviewed, dictated and finalized at location A. ING TECHNICIAN IMPRESSION: 1. Left-sided dual-lead pacemaker insertion. No acute cardiopulmonary abnormali ty.
--- NOTE | 2021-02-11 10:40 | ECG_ITS ---
Measurements Intervals [place] Rate: 37 P: OK: 0 QRS: 22 QRSD: 167 T: 67 QT: 536 QTc: 421 Interpretive Statements SINUS RHYTHM WITH WITH SLOW VENTRICULAR RATE, 2ND DEGREE AV BLOCK, 2:1 CONDUCTION PROBABLY MOBITZ TYPE II LEFT BUNDLE BRANCH BLOCK ABNORMAL ECG Electronically Signed On 02-11-2021 11:48:49 [employer] by Alberto Dominguez D.O.
[2021-02-11 10:59] LABS: Basophils Percent Auto 0.4 % (0.2-1.2); Eosinophils Absolute Auto 0.1 K/mm3 (0-0.3); Hemoglobin 13.8 g/dL (14.0-18.0); Immature Granulocyte Absolute 0.05 K/mm3 (0.00-0.031); Immature Granulocyte Percent A 0.5 % (0-0.5); Lymphocytes Absolute Auto 1.53 K/mm3 (0.9-3.2); Lymphocytes Percent Auto 15.1 % (18.3-44.2); Mean Corpuscular HGB Conc 32.9 g/dl (32-36); Mean Corpuscular Hemoglobin 30.6 pg (26-34); Mean Corpuscular Volume 93.1 fl (80-100); Mean Platelet Volume 12.8 fl (7.4-10.4); Monocytes Absolute Auto 0.8 K/mm3 (0.1-0.6); Monocytes Percent Auto 8.3 % (2.6-8.5); Neutrophils Absolute Auto 7.6 K/mm3 (1.3-6.7); Neutrophils Percent Auto 74.7 % (45.5-73.1); Platelet Count Result 177 k/mm3 (150-375); Red Blood Count 4.51 M/mm3 (4.6-6.20); Red Cell Distribution Width 13.5 % (11.5-14.5); White Blood Count 10.1 K/mm3 (4.5-10.0)
[2021-02-11 11:05] LABS: INR 1.1; Prothrombin Time 13.6 Seconds (11.1-14.7)
[2021-02-11 11:06] LABS: Anion Gap 9 mmol/L (8-16); Blood Urea Nitrogen 15 mg/dL (9-20); Carbon Dioxide 24 mmol/L (22-30); Chloride 102 mmol/L (98-107); Estimated CRCL calculation 89 ml/min; Estimated Glomerular Filt Rate > 60; Glucose 177 mg/dL (65-110); Potassium 4.1 mmol/L (3.4-5.0); Sodium 135 mmol/L (137-145)
[2021-02-11 11:16] LABS: Glucose Point of Care 148 mg/dl (65-105)
--- NOTE | 2021-02-11 11:48 | WPDMODSED ---
Moderate Sedation Note-Pt Data Patient Data Diagnosis: high-grade AV block with trifascicular disease Present Complaint: FOLEY Procedure to be performed/Plan: implantation of permanent dual-chamber pacemaker Allergies Allergy/AdvReac Type Severity Reaction Status Date / Time No Known Allergies Allergy Verified 02/08/21 13:41 Home Medications Medication Instructions Recorded Confirmed Type glipizide 10 mg tablet 10 mg PO BID tablet 10/09/20 02/08/21 History lisinopril 2.5 mg tablet 10 mg PO DAILY tablet 10/09/20 02/08/21 History metformin 1,000 mg PO BID 02/08/21 02/08/21 History pitavastatin calcium [Livalo] 1 mg PO DAILY 02/08/21 02/08/21 History Current Medications: Active Medications Sodium Chloride (Normal Saline Iv) 500 mls @ 100 mls/hr IV CONT .Q5H CHARLIE Sedation/Anesthesia: No previous sedation/anesthesia problems (including family history). PMFSH Past Medical History Medical History Diabetes mellitus Hypertension Family History Family History Mother Alzheimer disease Seizure Father Skin cancer Diabetes mellitus Hx of CABG Social History Social History Smoking status: Never smoker Alcohol intake: current Substance use: never Substance use type: does not use Living arrangements: with family Gender identity (if verbalized by the patient): Male Spiritual care concerns: No Mod Sed Physical Exam Physical Exam Pre Procedural Exam: Normal: Appearance ( pleasant overweight white male no distress), Neck, Throat, Airway, Lungs, Heart Size, Heart Rhythm, Neuro Exam, Abdomen and Extremities and Variation: Heart Rate ( bradycardic) Hours since solid foods: 12 Hours since liquid intake: 12 Mallampati Classification: class II Internal Medicine - PN: Obj Da Vital Signs Vital Signs: Vital Signs - 24 hr 02/11/21 10:56 Temperature 36.4 C Pulse Rate 34 L Respiratory Rate 18 Blood Pressure 152/66 H Pulse Oximetry 99 Meds/Results Medications: Active Medications Generic Name Dose Route Start Last Admin Trade Name Freq PRN Reason Stop Dose Admin Sodium Chloride 500 mls @ 100 mls/hr 02/11/21 10:40 Normal Saline Iv IV CONT .Q5H CHARLIE Labs CBC & Chem 7: 02/11/21 10:47 02/11/21 10:47 Labs: Laboratory Results - last 24 hr 02/11/21 02/11/21 02/11/21 10:47 10:47 10:47 WBC 10.1 H RBC 4.51 L Hgb 13.8 L Hct 42.0 MCV 93.1 MCH 30.6 MCHC 32.9 RDW 13.5 Plt Count 177 MPV 12.8 H Immature Gran % (Auto) 0.5 Neut % (Auto) 74.7 H Lymph % (Auto) 15.1 L Williamson % (Auto) 8.3 Eos % (Auto) 1.0 Baso % (Auto) 0.4 Lymph # (Auto) 1.53 Williamson # (Auto) 0.8 H Eos # (Auto) 0.1 Baso # (Auto) 0.0 Abs Immat Gran (auto) 0.05 H Absolute Neuts (auto) 7.6 H Absolute Nucleated RBC 0.0 Nucleated RBC % 0.0 PT 13.6 INR 1.1 Sodium 135 L Potassium 4.1 Chloride 102 Carbon Dioxide 24 Anion Gap 9 BUN 15 D Creatinine 0.90 Estim Creat Clear Calc 89 Estimated GFR > 60 Glucose 177 H POC Capillary Glucose Calcium 9.0 02/11/21 11:08 WBC RBC Hgb Hct MCV MCH MCHC RDW Plt Count MPV Immature Gran % (Auto) Neut % (Auto) Lymph % (Auto) Williamson % (Auto) Eos % (Auto) Baso % (Auto) Lymph # (Auto) Williamson # (Auto) Eos # (Auto) Baso # (Auto) Abs Immat Gran (auto) Absolute Neuts (auto) Absolute Nucleated RBC Nucleated RBC % PT INR Sodium Potassium Chloride Carbon Dioxide Anion Gap BUN Creatinine Estim Creat Clear Calc Estimated GFR Glucose POC Capillary Glucose 148 H Calcium ASA Classification/Sedation ASA Classification/Sedation ASA Class: II Emergent: No Risks: Risks, benefits and alternatives explained and patient/family
--- NOTE | 2021-02-11 13:17 | ECG_ITS ---
Measurements Intervals [place] Rate: 65 P: 216 OK: 177 QRS: -75 QRSD: 172 T: 84 QT: 469 QTc: 488 Interpretive Statements ELECTRONIC ATRIAL PACEMAKER ELECTRONIC VENTRICULAR PACEMAKER NO FURTHER INTERPRETATION IS POSSIBLE ATYPICAL ECG Electronically Signed On 02-11-2021 15:02:58 [employer] by Alberto Dominguez D.O.
--- NOTE | 2021-02-11 13:20 | WPDCARDPROC ---
Cardiac Cath Procedure Note Date of procedure:: 02/11/21 Performing physician:: Judson Infante MD Indication:: complete heart block Brief clinical history:: this is a 65-year-old man with recently found to have symptomatic bradycardia and has demonstrated evidence of sinus rhythm with trifascicular disease at times with 2-1 conduction and left bundle branch block at times with complete heart block with right bundle branch conduction. Procedure Procedure performed:: Permanent dual-chamber pacemaker implant Sedation/Medication given:: fentanyl 50 mg Versed 2 mg case start time 12:28 p.m. a case end time 1:14 p.m. sedation provided by Jeanne Weber RN, trained observer Access site:: right subclavian vein Estimated blood loss:: 15 cc Procedure note:: patient brought to the cardiac catheterization lab in the postabsorptive state. The left anterior chest wall was prepped and draped in the usual fashion. Anesthesia was provided with 1% lidocaine infiltrated locally. incision was then made from the midclavicular line to the deltopectoral groove about 1 in below the clavicle. Sharp and blunt dissection was used to dissect the subcutaneous tissue electrocautery was used to provide cutaneous hemostasis. After this a blunt dissection was used to create a pacemaker pocket along the prepectoral fascial plane inferior to the incision. The patient was then placed under the x-ray and the left subclavian vein was punctured using 2 separate introducer sheath kit. The J wires were advanced into the venous circulation down to the level of the right atrium. After this the 6 [place] safe sheaths were placed in the subclavian vein and using these safe sheaths the 2 pacemaker leads detailed below replaced into the venous circulation to the level of right atrium the Sheaths were then peeled away. Following this attention was turned to positioning the ventricular lead withdrew the straight stylet used a 3 cc syringe to formulate a J-tip stylet and used this to steer lead through the right ventricle out to the level of the pulmonary artery. A straight stylet was placed into the lead and it was withdrawn and placed into the right ventricular apex. The fixation screw was deployed. Using the analyzer appropriate pacing and sensing performance was demonstrated and a 10 pole stimulus showed no evident cardiac stimulation. After this attention was turned to the atrial lead I withdrew the straight stylet and a preformed atrial J with placement of lead was maneuvered into the right atrial appendage. The fixation screw was then deployed and upon withdrawal of the stylet the lead tip was fixed into position. After this the leads were secured to the base of the pocket using the supplied suture sleeves 2-0 silk ties. The leads were then connected to the pacemaker using torque wrench in the entire assembly was placed into the newly created pocket after the pocket was irrigated with Ancef infused saline. The incision was then closed in layers using 3-0 Vicryl in an interrupted fashion for the subcutaneous tissue and 4-0 Vicryl a running subcuticular fashion for the skin. The wound was dressed with an Aquacel dressing and procedure was well tolerated the patient was taken to the holding area with the left arm with no apparent. Findings:: The patient received BiotroniNuScale Power dual-chamber pacemaker model [id number], serial number [id number]. device is programmed in the DDD/CLS lower rate limit 60 upper rate limit 30. The atrial lead is a Biotronik screw-in bipolar lead model Solia S 53, serial number [id number]. atrial P-waves sensed at 9 point mV threshold 0.5 volts at 0.4 millisecond pacing impedance 526 Ohms. The ventricular lead is a Biotronik screw-in bipolar lead model Solia S 60, serial number [id number]. ventricular R-waves sensed at 9.2 mV threshold 0.6 volts at 0.4 milliseconds pacing impedance 680 Ohms. Conclusion:: 1. Successful uncomplicated implantati
--- NOTE | 2021-02-11 17:10 | SUR.PHASEII ---
All D/C instructions reviewed and questions answered. Pt and verbalized understanding.
== END 2021-02-11 17:26 | disposition home or self-care (01) ==
PROVIDERS: Visit Provider Specialist
PROC: 0JH606Z Insertion of Pacemaker, Dual Chamber into Chest Subcutaneous Tissue and Fascia, Open Approach (ICD-10-PCS; CPT 33208; principal; 2021-02-11 11:30)
DX: I44.2 Atrioventricular block, complete (principal); I10 Essential (primary) hypertension; E11.9 Type 2 diabetes mellitus without complications; E78.5 Hyperlipidemia, unspecified; Z79.84 Long term (current) use of oral hypoglycemic drugs
CPT/HCPCS: 33208; 36415; 71045; 80048; 82948; 85025; 85610; 93005; C1779; C1785; J0690; J2250; J3010; J7040